=== PATIENT | male | born 1990 | race Caucasian/White ===

== ENCOUNTER 2018-11-15 23:49 | Emergency (ER) | payer OTHER ==
[2018-11-16 00:11] VITALS: BP 127/79; PULSE 88; TEMP 98.3; BMI 28.5
--- NOTE | 2018-11-16 01:24 | PDOC ---
History of Present Illness - General Chief Complaint: Headache Stated Complaint: HEADACHE Time Seen by Provider: 11/16/18 01:21 - History of Present Illness Initial Comments: 11/16/18 01:24 28 yo M with h/o asthma who p/w GUPTA. Patient reports 3 weeks of diffuse, frontal , head pressure, intermittently, associated with photo/phono phobia. Also endorses nausea without vomiting. GUPTA also worse with exertion. Today patient reports worsening headache, beginning at 1200 PM, with no identifiable alleviators. Not improved with OTC Tylenol and Motrin. Denies h/o similar GUPTA. States that he sought medical attention at urgent care two times within past 2 weeks. reports neck stiffness 1 week ago, now resolved. 3 days ago (11/13/18) was prescribed Augmentin for sinusitis. Endorses 2 days of loose stools. No recent sick contacts. Patient denies scintillating scotomas, vision change, palpitations, cough, wheezing, orthopena, PND, leg swelling/pain, fevers, CP, SOB, urinary complaints , hematuria, BPR, abdominal pain, constipation, lightheadedness, weakness, sensory changes. PMHx: as noted above ROS: as noted SHx: Social Etoh. Denies IVDA, tobacco use Allergies: NKDA Past History - Past Medical History Allergies/Adverse Reactions: Allergies Allergy/AdvReac Type Severity Reaction Status Date / Time No Known Allergies Allergy Verified 11/16/18 00:09 Home Medications: Ambulatory Orders Albuterol Sulfate Inhaler - [Ventolin HFA Inhaler -] 2 inh PO Q4H #1 inh - Suicide/Smoking/Psychosocial Hx Smoking History: Never smoked Have you smoked in the past 12 months: No Number of Cigarettes Smoked Daily: 1 Information on smoking cessation initiated: No Hx Alcohol Use: No Drug/Substance Use Hx: No Review of Systems - Review of Systems Comments:: 11/16/18 01:24 GENERAL/CONSTITUTIONAL: No fever or chills. No weakness. HEAD, EYES, EARS, NOSE AND THROAT: No change in vision. No ear pain or discharge. No sore throat. CARDIOVASCULAR: No chest pain or shortness of breath RESPIRATORY: No cough, wheezing, or hemoptysis. GASTROINTESTINAL: + nausea. No vomiting, constipation. GENITOURINARY: No dysuria, frequency, or change in urination. MUSCULOSKELETAL: No joint or muscle swelling or pain. No neck or back pain. SKIN: No rash NEUROLOGIC: + headache. No vertigo, loss of consciousness, or change in strength /sensation. ENDOCRINE: No increased thirst. No abnormal weight change HEMATOLOGIC/LYMPHATIC: No anemia, easy bleeding, or history of blood clots. ALLERGIC/IMMUNOLOGIC: No hives or skin allergy. *Physical Exam - Vital Signs Last Vital Signs Temp Pulse Resp BP Pulse Ox 98.3 F 88 18 127/79 99 11/16/18 00:01 11/16/18 00:01 11/16/18 00:01 11/16/18 00:01 11/16/18 00:01 - Physical Exam Comments: 11/16/18 01:24 GENERAL: Awake, alert, and fully oriented, in no acute distress HEAD: No signs of trauma, normocephalic, atraumatic EYES: PERRLA, EOMI, sclera anicteric, conjunctiva clear ENT: Neg brudinsky, and kernig. Auricles normal inspection, hearing grossly normal, nares patent, oropharynx clear without exudates. Moist mucosa NECK: Normal ROM, supple, no lymphadenopathy, JVD, or masses LUNGS: No distress, speaks full sentences, clear to auscultation bilaterally HEART: Regular rate and rhythm, normal S1 and S2, no murmurs, rubs or gallops, peripheral pulses normal and equal bilaterally. ABDOMEN: Soft, nontender, normoactive bowel sounds. No guarding, no rebound. No masses EXTREMITIES : Normal inspection, Normal range of motion, no edema. No clubbing or cyanosis. NEUROLOGICAL: Cranial nerves II through XII grossly intact. Normal speech, normal gait, no focal sensorimotor deficits SKIN: Warm, Dry, normal turgor, no rashes or lesions noted ED Treatment Course - LABORATORY CBC & Chemistry Diagram: 11/16/18 01:37 11/16/18 01:37 Medical Decision Making - Medical Decision Making 11/16/18 01:44 28 yo M with h/o asthma who p/w diffuse, frontal, head pressure. Vitals wnl, AF , A&Ox3. Physical exam unremarkable. Absent neuro deficits on exam. Will consider GUPTA disorder tension vs. cluster, migraine disorder. Differential also includes meningitis, mass effect. ED Course: Reglan, Diphenhydramine, NS, Toradol 11/16/18 04:15 CT Face with mucoperiosteal thickening of paranasal sinuses CBC,CMP: Unremarkable 11/16/18 04:34 Patient pain improved Stable for d/c with return precautions. Advised to f/u PMD. *DC/Admit/Observation/Transfer Diagnosis at time of Disposition: Frontal headache - Discharge Dispostion Condition at time of disposition: Stable Decision to Admit order: No - Referrals Referrals: Valentino Montemayor DO [Staff Physician] - - Patient Instructions Printed Discharge Instructions: DI for Sinus Headache, DI for Headache Additional Instructions: Please return to the emergency department with any new or worsening symptoms or concerns. Please follow up with your primary care physician and neurologist within 72 hours. - Post Discharge Activity
[2018-11-16] MEDS ORDERED: SODIUM CHLORIDE 1,000 ML IV STA (01:39)
[2018-11-16] MEDS ORDERED: METOCLOPRAMIDE HCL INJECTION 10 MG/2 ML VIAL IVPUSH ONE (01:39)
[2018-11-16] MEDS ORDERED: KETOROLAC TROMETHAMINE 30 MG/1 ML VIAL IVPUSH ONE (01:39)
[2018-11-16] MEDS ORDERED: METOCLOPRAMIDE HCL INJECTION 10 MG/2 ML VIAL ONE (02:09)
[2018-11-16] MEDS ORDERED: KETOROLAC TROMETHAMINE 30 MG/1 ML VIAL ONE (02:10)
[2018-11-16 02:17] LABS: ALBUMIN 3.9 g/dl (3.4-5.0); BILIRUBIN,TOTAL 0.7 mg/dL (0.2-1); BLOOD UREA NITROGEN 20.3 mg/dL (7-18); CALCIUM 8.6 mg/dL (8.5-10.1); CREATININE 0.9 mg/dL (0.55-1.3); POTASSIUM 3.6 mmol/L (3.5-5.1); TOT PROT 6.7 g/dl (6.4-8.2)
[2018-11-16 02:35] LABS: BASO % 0.4 % (0-2.0); EOS % 0.9 % (0-4.5); HEMOGLOBIN 12.5 GM/dL (11.7-16.9); LYMPH % 23.3 % (8-40); MCH 30.1 pg (25.7-33.7); MCHC 35.9 g/dl (32.0-35.9); MEAN PLT VOLUME 9.5 fl (7.5-11.1); MONO % 7.5 % (3.8-10.2); NEUT % 67.9 % (42.8-82.8); PLATELET COUNT 189 K/MM3 (134-434); RBC 4.16 M/mm3 (4.00-5.60); RDW 13.7 % (11.9-15.9); WHITE BLOOD COUNT 7.5 K/mm3 (4.0-10.0)
[2018-11-16] MEDS ORDERED: ACETAMINOPHEN 1000 MG/100 ML VIAL (NON FORMULARY) IVPB ONE (04:33)
[2018-11-16] MEDS ORDERED: ACETAMINOPHEN 325 MG TABLET (FP) PO ONE (04:35)
--- NOTE | 2018-11-16 04:35 | PDOC ---
Documentation entered by Ary Patel SCRIBE, acting as scribe for Loraine Morel MD. Loraine Morel MD: This documentation has been prepared by the sarahibe, Ary Patel SCRIBE, under my direction and personally reviewed by me in its entirety. I confirm that the documentation accurately reflects all work, treatment, procedures, and medical decision making performed by me. Attending Attestation - Resident Resident Name: Karel Pastor - ED Attending Attestation I have performed the following: I have examined & evaluated the patient, The case was reviewed & discussed with the resident, I agree w/resident's findings & plan - HPI HPI: 11/16/18 02:59 The patient is a 28 year old male with a past medical history significant for asthma presents to the emergency department with a headache. The patient presents with a diffuse frontal headache, associated with photophobia, phonophobia, nausea and vomiting. The patient reports the pain is worse with exertion, with no relief noted with tylenol or motrin. The patient reports following up at the , where he was started on augmentin for possible sinusitis. The patient reports being compliant with abx, without relief, however reports having episodes of diarrhea. Denies fever or chills. - Physicial Exam PE: 11/16/18 02:59 GENERAL: Awake, alert and oriented. The patient is in no acute distress. ENT: Ears normal, nares patent, oropharynx clear without exudates. Moist mucous membranes. NECK: Normal range of motion, supple, no nuchal rigidity LUNGS: Breath sounds equal, clear to auscultation bilaterally. No wheezes, and no crackles. HEART: Regular rate and rhythm, normal S1 and S2 without murmur, rub or gallop. ABDOMEN: Soft, nontender, normoactive bowel sounds. No guarding, no rebound. No masses palpable. EXTREMITIES: Normal range of motion, no edema. NEUROLOGICAL: Answering all questions. Cranial nerves II through XII grossly intact. Normal speech. No focal neurological deficits. SKIN: Warm, Dry, normal turgor, no rashes or lesions noted. Pt has been in the sun and has sunburn. Possible headache from sunexposure. - Medical Decision Making 11/16/18 04:15 Patient Name: DARNELL JARA THIS IS A PRELIMINARY REPORT FROM [facility] DATE OF SERVICE: 2018-11-16 03:04:43 IMAGES: [id number] EXAM: CT SINUSES WITHOUT CONTRAST and CT HEAD WITHOUT CONTRAST HEAD No acute brain parenchymal abnormality. No hemorrhage, mass or acute territorial infarct. No skull fracture. 5 mm ludency near outer cortex right parietal bone, uncertain significance. Visualized mastoid air cells clear. FACE Mucoperiosteal thickening paranasal sinuses. Ostiomeatal units not well seen, possibly partly occluded by mucoperiosteal thickening. Mastoid air cells and middle ear cavities clear bilaterally 11/16/18 22:20 Pt is feeling better in the ER after treatment and he is stable for d/c. He is to continue rx for sinusitis
[2018-11-16] MEDS ORDERED: ACETAMINOPHEN INJECTION 100 ML IVPB ONE (04:45)
== END 2018-11-16 05:20 | disposition home or self-care (01) ==
LOC: JER 23:49
PROC: 3E033NZ Introduction of Analgesics, Hypnotics, Sedatives into Peripheral Vein, Percutaneous Approach (ICD-10-PCS; principal; 2018-11-15)
PROC: 3E0333Z Introduction of Anti-inflammatory into Peripheral Vein, Percutaneous Approach (ICD-10-PCS; 2018-11-15)
PROC: 3E033GC Introduction of Other Therapeutic Substance into Peripheral Vein, Percutaneous Approach (ICD-10-PCS; 2018-11-15)
PROC: 3E033GC Introduction of Other Therapeutic Substance into Peripheral Vein, Percutaneous Approach (ICD-10-PCS; 2018-11-15)
DX: R51 Headache (principal)
CPT/HCPCS: 36415; 70450-TC; 70486-TC; 80053; 85025; 99281-25; J0131; J7030